=== PATIENT | female | born 1980 | race African-American/Black ===

== ENCOUNTER 2017-11-08 19:59 | Emergency (ER) | payer OTHER ==
[~2017-11-08] VITALS: Ht 162.6 cm; Wt 61.2 kg
[~2017-11-08 19:59] MED LIST: AUGMENTIN 875875 MG PO; NORTRIPTYLINE H10 M1 GT; PEPTO-BISM262 MG/15 PO; PRILOSEC 20 MG20 MG PO; VENTOLIN HFA 1818 GM INH
[2017-11-08] MEDS ORDERED: NEOMYCIN-POLY-7.5 ML OPHTHALMIC (20:27)
[2017-11-08] MEDS ORDERED: NORCO 5-325 TA1 EACH PO (20:27)
== END 2017-11-08 20:41 | disposition home or self-care (01) ==
LOC: ER 19:59
DX: S05.01XA Injury of conjunctiva and corneal abrasion without foreign body, right eye, initial encounter (principal); H10.9 Unspecified conjunctivitis; G43.909 Migraine, unspecified, not intractable, without status migrainosus; K21.9 Gastro-esophageal reflux disease without esophagitis; Z88.1 Allergy status to other antibiotic agents; X58.XXXA Exposure to other specified factors, initial encounter; Y93.89 Activity, other specified; Y92.89 Other specified places as the place of occurrence of the external cause; Y99.8 Other external cause status

== ENCOUNTER 2018-07-07 18:13 | Emergency (ER) | payer OTHER ==
[~2018-07-07] VITALS: Ht 162.6 cm; Wt 59.0 kg
--- NOTE | ~2018-07-07 | EKG ---
[address] [address] ELECTROCARDIOGRAM REPORT Name: ANGELIKA WILSON Room #: [facility]#: [id number] Admission: 07/07/18 Attend Phys: Discharge: 07/07/18 Date of : 76 Report #: [id number] THIS REPORT FOR: //name// [facility] ED Test Date: 2018-07-07 Test Time: 18:32:17 Pat Name: ANGELIKA WILSON Department: Room: Gender: F [employer] Clerk: MZOOK : 1980 Requested By: Katya Hansen Order Number: [id number] MD: Joseph Olivera Measurements Intervals [place] Rate: 96 P: 69 IN: 127 QRS: 35 QRSD: 76 T: 19 QT: 342 QTc: 433 Interpretive Statements Sinus rhythm Normal tracing Compared to ECG 03/08/2016 18:37:47 Sinus tachycardia no longer present Electronically Signed On 07-08-2018 13:02:03 CDT by Joseph Olivera [email or web address] <ELECTRONICALLY SIGNED> By: Joseph Olivera MD, [facility] 07/08/18 1302 1832 31 Joseph Olivera MD, FACC /EPI
[~2018-07-07 18:13] MED LIST changes: +NEOMYCIN-POLY-7.5 ML OPHTHALMIC; +NORCO 5-325 TA1 EACH PO
[2018-07-07 19:26] LABS: ABSOLUTE NEUTROPHILS 3.4 thou/uL (1.4-8.2); BASOPHILS 1.5 % (0.0-2.0); HEMATOCRIT 34.5 % (37.0-47.0); HEMOGLOBIN 11.5 gm/dL (12.0-15.0); LYMPHOCYTES 41.8 % (24.0-44.0); MCH 27.5 pg (26.0-34.0); MCHC 33.2 g/dL (28.0-37.0); MCV 82.9 fL (80.0-100.0); MONOCYTES 6.5 % (1.0-8.0); PLATELET COUNT 248 thou/uL (150-400); POLYS 48.2 % (36.0-66.0); RBC 4.16 mil/uL (4.20-5.00); RDW 16.8 % (10.5-14.5)
[2018-07-07 19:29] LABS: ANION GAP 5 mmol/L (7-16); BUN 13 mg/dL (7-18); CALCIUM 8.7 mg/dL (8.5-10.1); CHLORIDE 102 mmol/L (98-107); CO2 27 mmol/L (21-32); CREATININE 0.8 mg/dL (0.6-1.0); GLUCOSE 91 mg/dL (74-106); POTASSIUM 3.7 mmol/L (3.5-5.1); SODIUM 134 mmol/L (136-145)
[2018-07-07 19:30] VITALS: BP 125/80
[2018-07-07 19:38] LABS: ALBUMIN 3.3 g/dL (3.4-5.0); LIPASE 122 U/L (73-393); SGOT 17 U/L (15-37); SGPT 21 U/L (30-65); TOTAL BILIRUBIN 0.2 mg/dL (<0.1-1.0); TOTAL PROTEIN 7.1 g/dL (6.4-8.2); TROPONIN-I <0.06 ng/mL (<0.06)
[2018-07-07] MEDS ORDERED: PROTONIX40 MG PO (20:27)
== END 2018-07-07 21:01 | disposition home or self-care (01) ==
LOC: ER 18:13
PROVIDERS: Nurse Practitioner Family
DX: K21.9 Gastro-esophageal reflux disease without esophagitis (principal); R06.81 Apnea, not elsewhere classified; G43.909 Migraine, unspecified, not intractable, without status migrainosus; Z88.8 Allergy status to other drugs, medicaments and biological substances